=== PATIENT | female | born 2000 | race African-American/Black ===

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

== ENCOUNTER 2022-12-20 16:51 | Outpatient (CLI) | payer MEDICAID, OTHER ==
[~2022-12-20] VITALS: Ht 157.5 cm; Wt 59.5 kg
[2022-12-20 17:15] VITALS: BP 119/71
[2022-12-20 18:57] VITALS: BP 103/64
[2022-12-20] MEDS ORDERED: CALCIUM CARBONATE 500 MG CHEW U/D PO PRN (19:00)
[2022-12-20 19:54] VITALS: BP 128/77
== END 2022-12-20 19:30 | disposition home or self-care (01) ==
LOC: M LDO 16:51
PROVIDERS: ATTEND Advanced Practice Midwife
DX: O47.1 False labor at or after 37 completed weeks of gestation (principal); Z3A.38 38 weeks gestation of pregnancy
CPT/HCPCS: 59025; 76815; 76819; 76820; G0463

== ENCOUNTER → 2022-12-20 | Outpatient (REF) | payer MEDICAID, OTHER ==
[~2022-12-20] MED LIST changes: +LEVA750T7 PO; +QUET100T2 PO; -QUET1TAB8 PO; -TRAZ-163 PO; +TRAZ-257 PO
== END ==
LOC: M SFHCWAGY 16:49
PROVIDERS: ATTEND Obstetrics & Gynecology
DX: Z34.93 Encounter for supervision of normal pregnancy, unspecified, third trimester (principal)

== ENCOUNTER 2022-12-25 07:25 | Inpatient (IN) | payer OTHER, MEDICAID ==
[~2022-12-25] VITALS: Ht 157.5 cm; Wt 59.3 kg
[2022-12-25] VITALS (14 sets, daily range): BP systolic 114–144; BP diastolic 65–89
[2022-12-25] MEDS ORDERED: PANT20TA6 PO (07:50)
[2022-12-25] MEDS ORDERED: MULTTAB20 PO (07:50)
[2022-12-25] MEDS ORDERED: HOME MED LIST COMPLETE! XX SCH (07:55)
[2022-12-25 08:43] LABS: HEMATOCRIT 31.6 % (36.0-47.0); HEMOGLOBIN 10.4 g/dl (12.0-15.5); MEAN CORPUSCULAR HEMOGLOBIN 27.3 pg (27.0-33.0); MEAN CORPUSCULAR HGB CONC 32.9 g/dl (32.0-36.5); MEAN CORPUSCULAR VOLUME 82.9 fl (80.0-96.0); PLATELET COUNT, AUTOMATED 203 10^3/uL (150-450); RED BLOOD COUNT 3.81 10^6/uL (4.00-5.40); WHITE BLOOD COUNT 8.8 10^3/uL (4.0-10.0)
[2022-12-25] MEDS ORDERED: OXYTOCIN INJ 10UNITS/ML 1ML VIAL IM PRN (09:00)
[2022-12-25] MEDS ORDERED: LIDOCAINE 1% MDV 20ML VIAL INFIL PRN (09:00)
[2022-12-25] MEDS ORDERED: LACTATED RINGER'S 1000 ML IV STA (09:00)
[2022-12-25] MEDS ORDERED: METHYLERGONOVINE MALEATE 0.2MG/ML 1ML VIAL IM PRN (09:00)
[2022-12-25] MEDS ORDERED: OXYTOCIN DRIP 30 UNITS in IV 1 EA IV PRN (09:00)
[2022-12-25] MEDS ORDERED: TRANEXAMIC ACID INJection 1,000 MG in NS 100 ML IV PRN (09:00)
[2022-12-25] MEDS ORDERED: CARBOPROST TROMETHAMINE 250 MCG/ML AMP IM PRN (09:00)
[2022-12-25] MEDS ORDERED: LACTATED RINGER'S 1000 ML IV ONE (09:10)
[2022-12-25] MEDS ORDERED: miSOPROStol 50MCG 1/2 TABLET PO SCH (10:00)
[2022-12-25] MEDS: CALCIUM CARBONATE 500 MG CHEW U/D PO PRN ×3 (10:07→19:21)
[2022-12-25] MEDS: SERTRALINE HCL 50 MG TAB PO SCH (10:08)
[2022-12-25 12:09] LABS: HIV 1&2 SCREEN CENTAUR NEGATIVE (NEGATIVE)
[2022-12-25] MEDS ORDERED: OXYTOCIN DRIP 30 UNITS in IV 1 EA IV SCH (15:50)
[2022-12-25] MEDS: LR 1,000 ML IV SCH (16:00)
[2022-12-25] MEDS ORDERED: LR 500 ML IV PRN (17:35)
[2022-12-25] MEDS ORDERED: ONDANSETRON 4MG 2ML VIAL IV PRN (17:35)
[2022-12-25] MEDS ORDERED: diphenhydrAMINE 50MG/ML VIAL IV PRN (17:35)
[2022-12-25] MEDS ORDERED: ePHEDrine SULFATE 25 MG/5 ML(5MG/ML) SYRINGE IVP PRN (17:35)
[2022-12-25] MEDS ORDERED: NALOXONE INJ 0.4MG/1ML VIAL IV PRN (17:35)
[2022-12-25] MEDS ORDERED: EPIDURAL/PCA KEYS XX PRN (17:35)
[2022-12-25] MEDS: FENTANYL/ROPIVACAINE/NACL BAG 100 ML EPIDURAL SCH (17:48)
[2022-12-26] MEDS: FENTANYL/ROPIVACAINE/NACL BAG 100 ML EPIDURAL SCH (01:25)
[2022-12-26] MEDS: LR 1,000 ML IV SCH (04:45)
[2022-12-26 07:21] VITALS: BP 121/69
[2022-12-26 07:37] VITALS: BP 146/84
[2022-12-26 08:07] VITALS: BP 122/61
[2022-12-26] MEDS ORDERED: ACETAMINOPHEN 500 MG TAB PO PRN (08:10)
[2022-12-26] MEDS ORDERED: RHOGAM 300MCG (1500IU) INJ IM SCH (08:10)
[2022-12-26] MEDS ORDERED: DIBUCAINE 1% OINTMENT 30GM TOP PRN (08:10)
[2022-12-26] MEDS ORDERED: METHYLERGONOVINE MALEATE 0.2 MG TAB PO PRN (08:10)
[2022-12-26] MEDS ORDERED: DOCUSATE SODIUM 100MG CAPSULE PO PRN (08:10)
[2022-12-26] MEDS: PRENATAL VITAMINS CHEWABLE TABLET PO SCH (09:37)
[2022-12-26] MEDS: IBUPROFEN 600MG TAB PO PRN (09:38)
[2022-12-26] MEDS: SERTRALINE HCL 50 MG TAB PO SCH (09:38)
[2022-12-26 10:09] VITALS: BP 134/77
[2022-12-26] MEDS ORDERED: SERTRALINE HCL 50 MG TAB PO ONE (10:15)
[2022-12-26] MEDS ORDERED: SERT50TA29 PO (10:17)
[2022-12-26 18:00] VITALS: BP 129/77
[2022-12-27 06:00] VITALS: BP 119/78
[2022-12-27] MEDS: PRENATAL VITAMINS CHEWABLE TABLET PO SCH (08:32)
[2022-12-27] MEDS: SERTRALINE HCL 50 MG TAB PO SCH (08:32)
[2022-12-27 18:00] VITALS: BP 103/58
[2022-12-27] MEDS: IBUPROFEN 600MG TAB PO PRN (19:35)
[2022-12-28 02:30] VITALS: BP 134/64
[2022-12-28 06:21] VITALS: BP 121/73
[2022-12-28] MEDS: SERTRALINE HCL 50 MG TAB PO SCH (08:12)
[2022-12-28] MEDS: PRENATAL VITAMINS CHEWABLE TABLET PO SCH (08:12)
[2022-12-28] MEDS ORDERED: IBUP-1022 PO (08:22)
[2022-12-28] MEDS ORDERED: ACET-683 PO (08:22)
[2022-12-28] MEDS ORDERED: MEASLES,MUMPS,RUBELLA VACCINE INJ (MMR-II) SC.IMMUN ONE (09:00)
== END 2022-12-28 12:02 | disposition home or self-care (01) | DRG 560 ==
LOC: M LDI 07:25 → M OBS 12-26 10:25
PROVIDERS: ADMIT Specialist; ATTEND Advanced Practice Midwife
PROC: 3E0P7GC Introduction of Other Therapeutic Substance into Female Reproductive, Via Natural or Artificial Opening (ICD-10-PCS; 2022-12-25)
PROC: 10E0XZZ Delivery of Products of Conception, External Approach (ICD-10-PCS; principal; 2022-12-26)
PROC: 0KQM0ZZ Repair Perineum Muscle, Open Approach (ICD-10-PCS; 2022-12-26)
DX: O99.344 Other mental disorders complicating childbirth (principal); Z3A.39 39 weeks gestation of pregnancy; Z37.0 Single live birth; F41.9 Anxiety disorder, unspecified; F32.A Depression, unspecified; O70.1 Second degree perineal laceration during delivery

== ENCOUNTER 2023-04-23 18:06 | Emergency (ER) | payer OTHER, MEDICAID ==
[~2023-04-23] VITALS: Ht 157.5 cm; Wt 43.5 kg
[~2023-04-23 18:06] MED LIST changes: +ACET-683 PO; +IBUP-1022 PO; +MULTTAB20 PO; +PANT20TA6 PO; +SERT50TA29 PO
[2023-04-23 18:07] VITALS: BP 108/65; TEMP 99.4; O2SAT 100
== END 2023-04-23 19:58 | disposition left against medical advice (07) ==
LOC: M ED 18:06
DX: Z53.21 Procedure and treatment not carried out due to patient leaving prior to being seen by health care provider (principal)

== ENCOUNTER 2023-04-24 17:41 | Emergency (ER) | payer MEDICAID, OTHER ==
[~2023-04-24] VITALS: Ht 157.5 cm; Wt 53.4 kg
[2023-04-24 18:00] VITALS: BP 100/67; TEMP 101.2; O2SAT 99
[2023-04-24 18:59] LABS: BASO % 0.1 % (0.0-1.0); HEMATOCRIT 34.2 % (36.0-47.0); HEMOGLOBIN 11.2 g/dl (12.0-15.5); LYMPH # 1.1 10^3/uL (1.5-5.0); LYMPH % 10.3 % (24.0-44.0); MEAN CORPUSCULAR HEMOGLOBIN 27.3 pg (27.0-33.0); MEAN CORPUSCULAR HGB CONC 32.7 g/dl (32.0-36.5); MEAN CORPUSCULAR VOLUME 83.4 fl (80.0-96.0); MONO # 1.4 10^3/uL (0.0-0.8); MONO % 13.3 % (2.0-8.0); NEUTROPHILS # 8.1 10^3/uL (1.5-8.5); NEUTROPHILS % 75.7 % (36.0-66.0); PLATELET COUNT, AUTOMATED 184 10^3/uL (150-450); WHITE BLOOD COUNT 10.7 10^3/uL (4.0-10.0)
[2023-04-24 19:00] LABS: HCG, SERUM QUANTITATIVE < 2.6 MIU/ML (<4.2)
[2023-04-24 19:01] LABS: BLOOD UREA NITROGEN 17 MG/DL (9-23); CALCIUM LEVEL 8.4 MG/DL (8.5-10.1); CARBON DIOXIDE LEVEL 27 MMOL/L (20-31); CHLORIDE LEVEL 103 MMOL/L (98-107); CREATININE FOR GFR 0.81 MG/DL (0.55-1.30); GLOMERULAR FILTRATION RATE > 60.0 (>60); GLUCOSE, FASTING 98 MG/DL (60-100); POTASSIUM SERUM 3.6 MMOL/L (3.5-5.1); SODIUM LEVEL 137 MMOL/L (136-145)
[2023-04-24] MEDS ORDERED: ISOVUE-370 76% 100ML VIAL As Ordered ONE (19:05)
[2023-04-24] MEDS ORDERED: ONDANSETRON 4MG 2ML VIAL IV ONE (19:05)
[2023-04-24 19:19] LABS: LIPASE 30 U/L (12-53)
[2023-04-24 19:21] LABS: ALBUMIN 3.1 G/DL (3.2-5.2); ALKALINE PHOSPHATASE 83 U/L (46-116); ALT/SGPT 17 U/L (7.0-40); AST/SGOT 13 U/L (<34); BILIRUBIN,DIRECT < 0.1 MG/DL (<0.4); BILIRUBIN,TOTAL 0.3 MG/DL (0.3-1.2); TOTAL PROTEIN 6.3 G/DL (5.7-8.2)
== END 2023-04-24 20:25 | disposition left against medical advice (07) ==
LOC: M ED 17:41 → EDBD 17:41 → M ED 20:25
DX: M54.50 Low back pain, unspecified (principal); R68.83 Chills (without fever); R61 Generalized hyperhidrosis; Z53.9 Procedure and treatment not carried out, unspecified reason; K21.9 Gastro-esophageal reflux disease without esophagitis; N10 Acute pyelonephritis; Z79.899 Other long term (current) drug therapy
CPT/HCPCS: 74177; 80047; 80048; 80076; 81001; 83605; 83690; 84702; 85025; 86850; 86900; 86901; 87040; 87486; 87581; 87633; 87798; 99284; Q9967

== ENCOUNTER 2023-05-14 17:21 | Inpatient (IN) | payer MEDICAID, OTHER ==
[~2023-05-14] VITALS: Ht 157.5 cm; Wt 41.8 kg
[2023-05-14 18:14] LABS: HEMATOCRIT 38.2 % (36.0-47.0); HEMOGLOBIN 12.1 g/dl (12.0-15.5); MEAN CORPUSCULAR HEMOGLOBIN 27.3 pg (27.0-33.0); MEAN CORPUSCULAR HGB CONC 31.7 g/dl (32.0-36.5); MEAN CORPUSCULAR VOLUME 86.2 fl (80.0-96.0); PLATELET COUNT, AUTOMATED 293 10^3/uL (150-450); RED BLOOD COUNT 4.43 10^6/uL (4.00-5.40); WHITE BLOOD COUNT 5.8 10^3/uL (4.0-10.0)
[2023-05-14] MEDS ORDERED: NS 1,000 ML IV ONE (18:15)
[2023-05-14 18:16] LABS: ETHYL ALCOHOL (ETHANOL) < 0.003 % (0.000-0.010)
[2023-05-14 18:18] LABS: ACETAMINOPHEN LEVEL < 2.0 UG/ML (10.0-20.0); ALKALINE PHOSPHATASE 105 U/L (46-116); ALT/SGPT 15 U/L (7.0-40); AST/SGOT 12 U/L (<34); BILIRUBIN,DIRECT 0.1 MG/DL (<0.4); BILIRUBIN,TOTAL 0.5 MG/DL (0.3-1.2); BLOOD UREA NITROGEN 8 MG/DL (9-23); CALCIUM LEVEL 9.2 MG/DL (8.5-10.1); CARBON DIOXIDE LEVEL 24 MMOL/L (20-31); CHLORIDE LEVEL 106 MMOL/L (98-107); CREATININE FOR GFR 0.68 MG/DL (0.55-1.30); GLOMERULAR FILTRATION RATE > 60.0 (>60); GLUCOSE, FASTING 104 MG/DL (60-100); POTASSIUM SERUM 3.3 MMOL/L (3.5-5.1); SALICYLATE LEVEL < 3.0 MG/DL (<30); SODIUM LEVEL 144 MMOL/L (136-145); TOTAL PROTEIN 7.3 G/DL (5.7-8.2)
[2023-05-14] MEDS ORDERED: CHARCOAL ACTIVATED LIQUID 25GM/120ML BTL PO ONE (18:20)
[2023-05-14 18:21] LABS: THYROID STIMULATING HORMONE 2.094 uIU/ML (0.55-4.78)
[2023-05-14 18:27] LABS: AMPHETAMINES LEVEL URINE NEGATIVE (NEGATIVE); BARBITURATES URINE NEGATIVE (NEGATIVE); COCAINE METABOLITE URINE NEGATIVE (NEGATIVE); METHADONE URINE NEGATIVE (NEGATIVE)
[2023-05-14 18:28] LABS: BENZODIAZEPINES URINE NEGATIVE (NEGATIVE); CANNABINOIDS URINE NEGATIVE (NEGATIVE); OPIATES URINE NEGATIVE (NEGATIVE); PHENCYCLIDINE URINE NEGATIVE (NEGATIVE)
[2023-05-14 18:34] LABS: HCG, SERUM QUALITATIVE NEGATIVE (NEGATIVE)
[2023-05-14] MEDS ORDERED: POTASSIUM CHLORIDE 10MEQ SR TABLET PO ONE (18:35)
[2023-05-14 19:35] LABS: VENOUS BASE EXCESS -3.1 (-2.0-2.0); VENOUS HCO3 22.8 MMOL/L (23.0-27.0); VENOUS O2 SATURATION 96.6 % (60.0-80.0); VENOUS PARTIAL PRESSURE CO2 44.1 mmHg (38.0-50.0); VENOUS PARTIAL PRESSURE O2 96.2 mmHg (30.0-50.0); VENOUS PH 7.332 UNITS (7.330-7.430); VENOUS STANDARD HCO3 21.9 MMOL/L; VENOUS TOTAL CO2 24.2 MMOL/L (24.0-28.0)
[2023-05-14] MEDS ORDERED: MED REC IN PROGRESS XX SCH (19:40)
[2023-05-14] MEDS ORDERED: HOME MED LIST COMPLETE! XX SCH (19:45)
[2023-05-15] MEDS ORDERED: diphenhydrAMINE 25MG CAP PO PRN (12:35)
[2023-05-15] MEDS ORDERED: MOM 30ML SUSPENSION UDC PO PRN (12:35)
[2023-05-15] MEDS ORDERED: MAALOX 30 ML SUSP *UDC PO PRN (12:35)
[2023-05-15 15:02] VITALS: BP 124/87; TEMP 97; O2SAT 100
[2023-05-15] MEDS: NICOTINE 21MG/24HR 1 EA TRANSDERMAL TD PRN (17:37)
[2023-05-16 06:53] VITALS: BP 124/63; TEMP 98.2; O2SAT 98
[2023-05-16] MEDS: SERTRALINE HCL 25 MG TABLET PO SCH (11:36)
[2023-05-16] MEDS: LIDOCAINE 5% (LIDODERM) PATCH TD SCH (12:08)
[2023-05-16] MEDS: IBUPROFEN 600MG TAB PO PRN ×2 (15:28→21:35)
[2023-05-16 15:30] VITALS: BP 124/82; TEMP 97.5; O2SAT 100
[2023-05-16] MEDS: ACETAMINOPHEN TAB 650MG DOSE (2X325MG) PO PRN ×2 (16:17→22:22)
[2023-05-16 17:58] LABS: HEMATOCRIT 35.7 % (36.0-47.0); HEMOGLOBIN 11.7 g/dl (12.0-15.5); MEAN CORPUSCULAR HGB CONC 32.8 g/dl (32.0-36.5); MEAN CORPUSCULAR VOLUME 85.4 fl (80.0-96.0); PLATELET COUNT, AUTOMATED 257 10^3/uL (150-450); RED BLOOD COUNT 4.18 10^6/uL (4.00-5.40); WHITE BLOOD COUNT 6.9 10^3/uL (4.0-10.0)
[2023-05-16 18:05] LABS: ALKALINE PHOSPHATASE 103 U/L (46-116); ALT/SGPT 14 U/L (7.0-40); AST/SGOT 8 U/L (<34); BILIRUBIN,DIRECT 0.2 MG/DL (<0.4); BILIRUBIN,TOTAL 0.5 MG/DL (0.3-1.2); BLOOD UREA NITROGEN 10 MG/DL (9-23); CALCIUM LEVEL 9.3 MG/DL (8.5-10.1); CARBON DIOXIDE LEVEL 24 MMOL/L (20-31); CHLORIDE LEVEL 107 MMOL/L (98-107); CREATININE FOR GFR 0.78 MG/DL (0.55-1.30); GLOMERULAR FILTRATION RATE > 60.0 (>60); GLUCOSE, FASTING 92 MG/DL (60-100); POTASSIUM SERUM 3.6 MMOL/L (3.5-5.1); SODIUM LEVEL 141 MMOL/L (136-145); TOTAL PROTEIN 6.9 G/DL (5.7-8.2)
[2023-05-16] MEDS: NICOTINE 21MG/24HR 1 EA TRANSDERMAL TD PRN (19:57)
[2023-05-16] MEDS: traZODone 50 MG TAB PO PRN (22:23)
[2023-05-17 06:17] VITALS: BP 128/72; TEMP 98.2; O2SAT 100
[2023-05-17] MEDS: LIDOCAINE 5% (LIDODERM) PATCH TD SCH (09:00)
[2023-05-17] MEDS: SERTRALINE HCL 25 MG TABLET PO SCH (09:51)
[2023-05-17 17:32] VITALS: BP 118/63; TEMP 99.8
[2023-05-17] MEDS: traZODone 50 MG TAB PO PRN (20:55)
[2023-05-18 06:22] VITALS: BP 99/59; TEMP 98.2; O2SAT 98
[2023-05-18] MEDS: SERTRALINE HCL 25 MG TABLET PO SCH (09:50)
[2023-05-18] MEDS: LIDOCAINE 5% (LIDODERM) PATCH TD SCH (09:50)
[2023-05-18] MEDS: LevoFLOXacin 750 MG TABLET PO SCH (10:21)
[2023-05-18] MEDS: IBUPROFEN 600MG TAB PO PRN (16:34)
[2023-05-18 16:35] VITALS: BP 108/60; TEMP 98.9; O2SAT 96
[2023-05-18] MEDS ORDERED: PHENAZOPYRIDINE 100 MG TAB PO SCH (18:00)
[2023-05-18] MEDS: ARIPiprazole 10 MG TAB PO SCH (21:05)
[2023-05-18] MEDS: PHENAZOPYRIDINE 100 MG TAB PO SCH (21:06)
[2023-05-19] MEDS: PHENAZOPYRIDINE 100 MG TAB PO SCH ×3 (06:04→21:04)
[2023-05-19 06:44] VITALS: BP 114/65; TEMP 98.9; O2SAT 98
[2023-05-19] MEDS: LIDOCAINE 5% (LIDODERM) PATCH TD SCH (10:18)
[2023-05-19] MEDS: LevoFLOXacin 750 MG TABLET PO SCH (10:18)
[2023-05-19] MEDS: SERTRALINE HCL 25 MG TABLET PO SCH (10:18)
[2023-05-19 16:15] VITALS: BP 110/64; TEMP 97.1; O2SAT 100
[2023-05-19] MEDS: ARIPiprazole 10 MG TAB PO SCH (21:04)
[2023-05-19] MEDS: IBUPROFEN 600MG TAB PO PRN (21:04)
[2023-05-20] MEDS: PHENAZOPYRIDINE 100 MG TAB PO SCH ×2 (06:17→14:42)
[2023-05-20 06:40] VITALS: BP 117/78; TEMP 96.9; O2SAT 98
[2023-05-20] MEDS: SERTRALINE HCL 50 MG TAB PO SCH (09:30)
[2023-05-20] MEDS: LevoFLOXacin 750 MG TABLET PO SCH (09:31)
[2023-05-20] MEDS: LIDOCAINE 5% (LIDODERM) PATCH TD SCH (09:32)
[2023-05-20 16:16] VITALS: BP 116/67; TEMP 98.1; O2SAT 97
[2023-05-20] MEDS: traZODone 50 MG TAB PO PRN (20:25)
[2023-05-20] MEDS: ARIPiprazole 10 MG TAB PO SCH (20:25)
[2023-05-21 06:26] VITALS: BP 121/73; TEMP 98.6; O2SAT 95
[2023-05-21] MEDS: LIDOCAINE 5% (LIDODERM) PATCH TD SCH (09:10)
[2023-05-21] MEDS: SERTRALINE HCL 50 MG TAB PO SCH (09:10)
[2023-05-21] MEDS: NICOTINE 21MG/24HR 1 EA TRANSDERMAL TD PRN (09:14)
[2023-05-21] MEDS: LevoFLOXacin 750 MG TABLET PO SCH (11:43)
[2023-05-21 18:00] VITALS: BP 123/75; TEMP 97.2; O2SAT 100
[2023-05-21] MEDS: traZODone 50 MG TAB PO PRN (20:37)
[2023-05-21] MEDS: ARIPiprazole 10 MG TAB PO SCH (20:37)
[2023-05-22 06:22] VITALS: BP 118/65; TEMP 97.2; O2SAT 96
[2023-05-22] MEDS: SERTRALINE 100 MG TAB PO SCH (08:44)
[2023-05-22] MEDS: NICOTINE 21MG/24HR 1 EA TRANSDERMAL TD PRN (08:45)
[2023-05-22] MEDS: LIDOCAINE 5% (LIDODERM) PATCH TD SCH (08:46)
[2023-05-22] MEDS: LevoFLOXacin 750 MG TABLET PO SCH (11:39)
[2023-05-22 15:31] VITALS: BP 123/71; TEMP 98.8; O2SAT 100
[2023-05-22 17:53] VITALS: BP 101/62; TEMP 96.9; O2SAT 98
[2023-05-22] MEDS: traZODone 50 MG TAB PO PRN (21:13)
[2023-05-22] MEDS: ARIPiprazole 10 MG TAB PO SCH (21:13)
[2023-05-23 06:11] VITALS: BP 114/72; TEMP 97.4; O2SAT 98
[2023-05-23] MEDS: SERTRALINE 100 MG TAB PO SCH (09:44)
[2023-05-23] MEDS: NICOTINE 21MG/24HR 1 EA TRANSDERMAL TD PRN (09:44)
[2023-05-23] MEDS: LIDOCAINE 5% (LIDODERM) PATCH TD SCH (09:44)
[2023-05-23] MEDS ORDERED: ZOLO100T PO (10:30)
[2023-05-23] MEDS ORDERED: LIDO5TD TD (10:30)
[2023-05-23] MEDS ORDERED: NICO21PAT TD (10:30)
[2023-05-23] MEDS ORDERED: ABIL10TA9 PO (10:30)
[2023-05-23] MEDS ORDERED: TRAZ-252 PO (10:30)
== END 2023-05-23 12:46 | disposition home or self-care (01) | DRG 753 ==
LOC: M ED 17:21 → EDBD 17:21 → M ED INP 05-15 12:34 → M PSY 05-15 14:59
PROVIDERS: ADMIT Student in an Organized Health Care Education/Training Program; ATTEND Student in an Organized Health Care Education/Training Program
DX: F31.60 Bipolar disorder, current episode mixed, unspecified (principal); R45.850 Homicidal ideations; R45.851 Suicidal ideations; F60.3 Borderline personality disorder; Z62.810 Personal history of physical and sexual abuse in childhood; Z79.899 Other long term (current) drug therapy; F17.290 Nicotine dependence, other tobacco product, uncomplicated; M54.59 Other low back pain; F41.9 Anxiety disorder, unspecified; N39.0 Urinary tract infection, site not specified; F53.0 Postpartum depression

== ENCOUNTER 2023-10-04 15:56 | Inpatient (IN) | payer MEDICAID ==
[~2023-10-04] VITALS: Ht 157.5 cm; Wt 45.1 kg
[~2023-10-04 15:56] MED LIST changes: +ABIL10TA9 PO; +LIDO5TD TD; +NICO21PAT TD; +TRAZ-252 PO; +ZOLO100T PO
[2023-10-04] MEDS ORDERED: ZOLO100T PO (16:22)
[2023-10-04] MEDS ORDERED: TRAZ-252 PO (16:22)
[2023-10-04 16:57] LABS: HEMATOCRIT 40.7 % (36.0-47.0); HEMOGLOBIN 13.3 g/dl (12.0-15.5); MEAN CORPUSCULAR HEMOGLOBIN 28.2 pg (27.0-33.0); MEAN CORPUSCULAR HGB CONC 32.7 g/dl (32.0-36.5); MEAN CORPUSCULAR VOLUME 86.4 fl (80.0-96.0); PLATELET COUNT, AUTOMATED 221 10^3/uL (150-450); RED BLOOD COUNT 4.71 10^6/uL (4.00-5.40); WHITE BLOOD COUNT 6.5 10^3/uL (4.0-10.0)
[2023-10-04 17:24] LABS: ETHYL ALCOHOL (ETHANOL) < 0.003 % (0.000-0.010)
[2023-10-04 17:26] LABS: ALKALINE PHOSPHATASE 78 U/L (46-116); ALT/SGPT < 9 U/L (7.0-40); AST/SGOT 12 U/L (<34); BILIRUBIN,DIRECT < 0.1 MG/DL (<0.4); BILIRUBIN,TOTAL 0.3 MG/DL (0.3-1.2); BLOOD UREA NITROGEN 11 MG/DL (9-23); CALCIUM LEVEL 9.7 MG/DL (8.5-10.1); CARBON DIOXIDE LEVEL 24 MMOL/L (20-31); CHLORIDE LEVEL 108 MMOL/L (98-107); CREATININE FOR GFR 0.78 MG/DL (0.55-1.30); GLOMERULAR FILTRATION RATE > 60.0 (>60); GLUCOSE, FASTING 87 MG/DL (60-100); POTASSIUM SERUM 4.1 MMOL/L (3.5-5.1); SALICYLATE LEVEL < 3.0 MG/DL (<30); SODIUM LEVEL 138 MMOL/L (136-145); TOTAL PROTEIN 7.3 G/DL (5.7-8.2)
[2023-10-04 17:31] LABS: THYROID STIMULATING HORMONE 0.633 uIU/ML (0.55-4.78)
[2023-10-04 17:32] LABS: HCG, SERUM QUALITATIVE NEGATIVE (NEGATIVE)
[2023-10-04 18:52] LABS: AMPHETAMINES LEVEL URINE NEGATIVE (NEGATIVE); BARBITURATES URINE NEGATIVE (NEGATIVE); BENZODIAZEPINES URINE NEGATIVE (NEGATIVE); COCAINE METABOLITE URINE NEGATIVE (NEGATIVE); METHADONE URINE NEGATIVE (NEGATIVE); OPIATES URINE NEGATIVE (NEGATIVE)
[2023-10-04 18:53] LABS: PHENCYCLIDINE URINE NEGATIVE (NEGATIVE)
[2023-10-04 18:55] LABS: CANNABINOIDS URINE POSITIVE (NEGATIVE)
[2023-10-04] MEDS ORDERED: IBUPROFEN 400MG TAB PO PRN (19:10)
[2023-10-04] MEDS ORDERED: ACETAMINOPHEN TAB 650MG DOSE (2X325MG) PO PRN (19:10)
[2023-10-04] MEDS ORDERED: MOM 30ML SUSPENSION UDC PO PRN (19:10)
[2023-10-04] MEDS ORDERED: NICOTINE 21MG/24HR 1 EA TRANSDERMAL TD PRN (19:10)
[2023-10-04] MEDS ORDERED: MAALOX 30 ML SUSP *UDC PO PRN (19:10)
[2023-10-04] MEDS: OLANZapine ORAL DISINTEGRATING TAB 5MG PO PRN (21:41)
[2023-10-04] MEDS: traZODone 50 MG TAB PO PRN (21:41)
[2023-10-04 21:49] VITALS: BP 128/70; TEMP 98.2; O2SAT 98
[2023-10-05 06:35] VITALS: BP 109/67; TEMP 97.8; O2SAT 100
[2023-10-05] MEDS ORDERED: ARIP10TA32 PO (09:39)
[2023-10-05] MEDS ORDERED: HOME MED LIST COMPLETE! XX SCH (09:40)
[2023-10-05] MEDS: SERTRALINE HCL 50 MG TAB PO SCH (12:56)
[2023-10-05 16:15] VITALS: BP 124/77; TEMP 97.7; O2SAT 100
[2023-10-05] MEDS: diphenhydrAMINE 25MG CAP PO PRN (21:13)
[2023-10-05] MEDS: ARIPiprazole 10 MG TAB PO SCH (21:13)
[2023-10-05] MEDS: traZODone 50 MG TAB PO PRN (21:13)
[2023-10-05] MEDS: OLANZapine ORAL DISINTEGRATING TAB 5MG PO PRN (22:37)
[2023-10-06 06:12] VITALS: BP 114/60; TEMP 98.4; O2SAT 100
[2023-10-06] MEDS: SERTRALINE HCL 50 MG TAB PO SCH (08:36)
[2023-10-06] MEDS ORDERED: CEPACOL LOZENGE PO PRN (14:45)
[2023-10-06] MEDS: OLANZapine ORAL DISINTEGRATING TAB 5MG PO PRN (17:55)
[2023-10-06] MEDS: ARIPiprazole 10 MG TAB PO SCH (20:29)
[2023-10-06] MEDS: diphenhydrAMINE 25MG CAP PO PRN (21:31)
[2023-10-06] MEDS: traZODone 50 MG TAB PO PRN (21:31)
[2023-10-06] MEDS: SODIUM CHLORIDE NASAL 0.65% SPRAY BTL (OCEAN) PRN (21:49)
[2023-10-07 06:53] VITALS: BP 113/62; TEMP 98.3; O2SAT 97
[2023-10-07 07:25] LABS: CHOLESTEROL RISK RATIO 4.01 (<5); HDL CHOLESTEROL 41.3 MG/DL (>40); LDL CHOLESTEROL 109.1 MG/DL (<100); NON-HDL-C 124.7 MG/DL
[2023-10-07] MEDS: SERTRALINE HCL 50 MG TAB PO SCH (08:43)
[2023-10-07] MEDS: SODIUM CHLORIDE NASAL 0.65% SPRAY BTL (OCEAN) PRN ×2 (12:44→13:45)
[2023-10-07] MEDS: OLANZapine ORAL DISINTEGRATING TAB 5MG PO PRN (14:23)
[2023-10-07 15:23] VITALS: BP 128/70; TEMP 97.7; O2SAT 100
[2023-10-07] MEDS: diphenhydrAMINE 25MG CAP PO PRN (20:42)
[2023-10-07] MEDS: ARIPiprazole 10 MG TAB PO SCH (20:42)
[2023-10-07] MEDS: traZODone 50 MG TAB PO PRN (20:43)
[2023-10-08 06:31] VITALS: BP 128/68; TEMP 98.2; O2SAT 100
[2023-10-08] MEDS: SERTRALINE HCL 50 MG TAB PO SCH (09:56)
[2023-10-08] MEDS: OLANZapine ORAL DISINTEGRATING TAB 5MG PO PRN ×2 (13:01→19:39)
[2023-10-08 18:24] VITALS: BP 117/59; TEMP 98.7; O2SAT 99
[2023-10-08] MEDS: traZODone 50 MG TAB PO PRN (20:55)
[2023-10-08] MEDS: ARIPiprazole 10 MG TAB PO SCH (20:55)
[2023-10-08] MEDS: diphenhydrAMINE 25MG CAP PO PRN (20:55)
[2023-10-09 06:04] VITALS: BP 112/69; TEMP 98.9; O2SAT 96
[2023-10-09] MEDS: SERTRALINE HCL 50 MG TAB PO SCH (08:28)
[2023-10-09] MEDS: OLANZapine ORAL DISINTEGRATING TAB 5MG PO PRN (08:29)
[2023-10-09] MEDS ORDERED: ARIP10TA32 PO (10:36)
[2023-10-09] MEDS ORDERED: TRAZ-252 PO (10:36)
[2023-10-09] MEDS ORDERED: OLAN1TAB16 PO (10:36)
[2023-10-09] MEDS ORDERED: OLAN5ZYD PO (10:36)
[2023-10-09] MEDS ORDERED: NICO21PAT TD (10:36)
[2023-10-09] MEDS ORDERED: SERT50TA29 PO (10:36)
[2023-10-09] MEDS ORDERED: ABIL1INJ2 IM (10:39)
[2023-10-09] MEDS ORDERED: ARIPiprazole MONOHYDRATE 400 MG INJ (ABILIFY)(FREE PSY INPT ONLY) IM ONE (12:00)
== END 2023-10-09 12:59 | disposition home or self-care (01) | DRG 753 ==
LOC: M ED 15:56 → M ED INP 19:10 → M PSY 21:15
PROVIDERS: ADMIT Student in an Organized Health Care Education/Training Program; ATTEND Student in an Organized Health Care Education/Training Program
DX: F31.30 Bipolar disorder, current episode depressed, mild or moderate severity, unspecified (principal); Z91.148 Patient's other noncompliance with medication regimen for other reason; R45.851 Suicidal ideations; F12.90 Cannabis use, unspecified, uncomplicated; F60.3 Borderline personality disorder; E73.9 Lactose intolerance, unspecified; Z79.899 Other long term (current) drug therapy; G47.00 Insomnia, unspecified; F41.9 Anxiety disorder, unspecified; J10.89 Influenza due to other identified influenza virus with other manifestations; R51.9 Headache, unspecified; J02.9 Acute pharyngitis, unspecified

== ENCOUNTER → 2023-11-29 | Outpatient (REF) | payer OTHER ==
[~2023-11-29] MED LIST changes: +ABIL1INJ2 IM; +ARIP10TA32 PO; +OLAN1TAB16 PO; +OLAN5ZYD PO
== END ==
LOC: M PLALAB 15:16
PROVIDERS: ATTEND Advanced Practice Midwife
DX: Z53.9 Procedure and treatment not carried out, unspecified reason (principal)

== ENCOUNTER → 2023-12-28 | Outpatient (CLI) | payer OTHER | LOC: M WHC 11:38 | PROVIDERS: ATTEND Advanced Practice Midwife | DX: Z53.9 Procedure and treatment not carried out, unspecified reason (principal) ==

== ENCOUNTER → 2024-01-08 | Outpatient (CLI) | payer MEDICAID, OTHER ==
[2024-01-08 14:20] LABS: HEMOGLOBIN 10.6 g/dl (12.0-15.5); MEAN CORPUSCULAR HEMOGLOBIN 29.4 pg (27.0-33.0); MEAN CORPUSCULAR HGB CONC 33.1 g/dl (32.0-36.5); MEAN CORPUSCULAR VOLUME 88.9 fl (80.0-96.0); PLATELET COUNT, AUTOMATED 206 10^3/uL (150-450); WHITE BLOOD COUNT 10.2 10^3/uL (4.0-10.0)
[2024-01-08 15:27] LABS: HIV 1&2 SCREEN NEGATIVE (NEGATIVE)
[2024-01-08 15:35] LABS: HEPATITIS C VIRUS ABY INDEX < 0.02 INDEX (<0.8)
[2024-01-08 15:46] LABS: GC DNA AMPLIFICATION NEGATIVE (NEGATIVE)
== END ==
LOC: M PLALAB 10:48
PROVIDERS: ATTEND Advanced Practice Midwife
DX: O99.341 Other mental disorders complicating pregnancy, first trimester (principal); Z3A.00 Weeks of gestation of pregnancy not specified

== ENCOUNTER → 2024-05-20 | Outpatient (REF) | payer BC, OTHER ==
[2024-05-20 19:27] LABS: GC DNA AMPLIFICATION NEGATIVE (NEGATIVE)
== END ==
LOC: M SFHCWAGY 16:57
PROVIDERS: ATTEND Nurse Practitioner Women's Health
DX: Z34.80 Encounter for supervision of other normal pregnancy, unspecified trimester (principal)

== ENCOUNTER 2024-06-07 09:52 | Inpatient (IN) | payer OTHER, BC, MEDICAID ==
[~2024-06-07] VITALS: Ht 152.4 cm; Wt 54.0 kg
[2024-06-07] VITALS (11 sets, daily range): BP systolic 107–149; BP diastolic 73–92; O2SAT 99
[2024-06-07] MEDS ORDERED: LR 1,000 ML IV SCH ×2 (10:00→11:40)
[2024-06-07] MEDS ORDERED: CARBOPROST TROMETHAMINE 250 MCG/ML AMP IM PRN (10:00)
[2024-06-07] MEDS ORDERED: LIDOCAINE 1% MDV 20ML VIAL INFIL PRN (10:00)
[2024-06-07] MEDS ORDERED: METHYLERGONOVINE MALEATE 0.2MG/ML 1ML VIAL IM PRN (10:00)
[2024-06-07] MEDS ORDERED: TRANEXAMIC ACID INJection 1,000 MG in NS 100 ML IV PRN (10:00)
[2024-06-07 10:27] LABS: HEMATOCRIT 33.6 % (36.0-47.0); HEMOGLOBIN 11.5 g/dl (12.0-15.5); MEAN CORPUSCULAR HEMOGLOBIN 29.5 pg (27.0-33.0); MEAN CORPUSCULAR HGB CONC 34.2 g/dl (32.0-36.5); MEAN CORPUSCULAR VOLUME 86.2 fl (80.0-96.0); PLATELET COUNT, AUTOMATED 155 10^3/uL (150-450)
[2024-06-07] MEDS ORDERED: ePHEDrine SULFATE 25 MG/5 ML(5MG/ML) SYRINGE IVP PRN (10:55)
[2024-06-07] MEDS ORDERED: EPIDURAL/PCA KEYS XX PRN (10:55)
[2024-06-07] MEDS ORDERED: NALOXONE INJ 0.4MG/1ML VIAL IV PRN (10:55)
[2024-06-07] MEDS ORDERED: ONDANSETRON 4MG 2ML VIAL IV PRN (10:55)
[2024-06-07] MEDS ORDERED: diphenhydrAMINE 50MG/ML VIAL IV PRN (10:55)
[2024-06-07] MEDS ORDERED: LR 500 ML IV PRN (10:55)
[2024-06-07 11:27] LABS: HEPATITIS C VIRUS ABY INDEX 0.04 INDEX (<0.8)
[2024-06-07] MEDS: FENTANYL/ROPIVACAINE/NACL BAG 100 ML EPIDURAL SCH (11:28)
[2024-06-07] MEDS: OXYTOCIN DRIP 30 UNITS in IV 1 EA IV PRN (11:28)
[2024-06-07] MEDS: LACTATED RINGER'S 1000 ML IV STA (11:28)
[2024-06-07] MEDS ORDERED: IBUPROFEN 800 MG TAB PO PRN (11:40)
[2024-06-07] MEDS ORDERED: ANUSOL HC CREAM 30GM TOP PRN (11:40)
[2024-06-07] MEDS ORDERED: IBUPROFEN 600MG TAB PO PRN (11:40)
[2024-06-07] MEDS ORDERED: METHYLERGONOVINE MALEATE 0.2 MG TAB PO PRN (11:40)
[2024-06-07] MEDS ORDERED: CALCIUM CARBONATE 500 MG CHEW U/D PO PRN (11:40)
[2024-06-07] MEDS: OXYTOCIN DRIP 30 UNITS in IV 1 EA IV SCH (11:40)
[2024-06-07] MEDS ORDERED: DIBUCAINE 1% OINTMENT 30GM TOP PRN (11:40)
[2024-06-07] MEDS ORDERED: ACETAMINOPHEN TAB 650MG DOSE (2X325MG) PO PRN (11:40)
[2024-06-07] MEDS: ACETAMINOPHEN 500 MG TAB PO PRN (14:58)
[2024-06-07 15:30] LABS: AMPHETAMINES URINE REFLEX NEGATIVE (NEGATIVE); BARBITURATES URINE REFLEX NEGATIVE (NEGATIVE); BENZODIAZEPINES URINE REFLEX NEGATIVE (NEGATIVE); COCAINE METABOLITE URINE REFLE NEGATIVE (NEGATIVE); METHADONE URINE REFLEX NEGATIVE (NEGATIVE); OPIATES URINE REFLEX NEGATIVE (NEGATIVE); PHENCYCLIDINE URINE REFLEX NEGATIVE (NEGATIVE)
[2024-06-07 15:40] LABS: CANNABINOIDS URINE REFLEX PENDING CONFIRMATION (NEGATIVE)
[2024-06-08 05:24] VITALS: BP 133/82; O2SAT 100
[2024-06-08] MEDS: RHO(D) IMMUNE GLOBULIN/MALTOSE 500MCG(2500IU)/2.2ML VIAL (WINRHO) IM SCH (07:45)
[2024-06-08] MEDS: PRENATAL VITAMINS CHEWABLE TABLET PO SCH (08:22)
[2024-06-08 18:00] VITALS: BP 106/66; O2SAT 99
[2024-06-09 05:38] VITALS: BP 124/58; O2SAT 100
[2024-06-09] MEDS: DOCUSATE SODIUM 100MG CAPSULE PO PRN (11:18)
[2024-06-09] MEDS ORDERED: IBUP80TA PO (11:57)
[2024-06-09] MEDS ORDERED: ACET-683 PO (11:57)
[2024-06-09] MEDS: MEASLES,MUMPS,RUBELLA VACCINE INJ (MMR-II) SC.IMMUN ONE (17:57)
[2024-06-12 03:07] LABS: Cannabinoid Positive (.); Carboxy THC Conf, MS, UR 42 ng/mL (Cutoff=10)
== END 2024-06-09 18:00 | disposition home or self-care (01) | DRG 560 ==
LOC: M LDO 09:52 → M LDI 10:00 → M OBS 17:15
PROVIDERS: ADMIT Obstetrics & Gynecology; ATTEND Obstetrics & Gynecology
PROC: 10E0XZZ Delivery of Products of Conception, External Approach (ICD-10-PCS; principal; 2024-06-07)
PROC: 10907ZC Drainage of Amniotic Fluid, Therapeutic from Products of Conception, Via Natural or Artificial Opening (ICD-10-PCS; 2024-06-07)
DX: O99.324 Drug use complicating childbirth (principal); F17.200 Nicotine dependence, unspecified, uncomplicated; Z37.0 Single live birth; Z3A.38 38 weeks gestation of pregnancy; O99.334 Smoking (tobacco) complicating childbirth; F12.90 Cannabis use, unspecified, uncomplicated

== ENCOUNTER 2024-06-10 16:56 | Emergency (ER) | payer BC, MEDICAID, OTHER ==
[~2024-06-10 16:56] MED LIST changes: +IBUP80TA PO
[2024-06-10 17:59] LABS: HEMATOCRIT 40.4 % (36.0-47.0); HEMOGLOBIN 13.3 g/dl (12.0-15.5); MEAN CORPUSCULAR HEMOGLOBIN 28.6 pg (27.0-33.0); MEAN CORPUSCULAR HGB CONC 32.9 g/dl (32.0-36.5); MEAN CORPUSCULAR VOLUME 86.9 fl (80.0-96.0); PLATELET COUNT, AUTOMATED 286 10^3/uL (150-450); RED BLOOD COUNT 4.65 10^6/uL (4.00-5.40); WHITE BLOOD COUNT 16.1 10^3/uL (4.0-10.0)
[2024-06-10 18:09] LABS: ETHYL ALCOHOL (ETHANOL) < 0.003 % (0.000-0.010)
[2024-06-10 18:11] LABS: ALBUMIN 3.2 G/DL (3.2-5.2); ALKALINE PHOSPHATASE 138 U/L (46-116); ALT/SGPT 29 U/L (7.0-40); AST/SGOT 36 U/L (<34); BILIRUBIN,DIRECT < 0.1 MG/DL (<0.4); BILIRUBIN,TOTAL 0.3 MG/DL (0.3-1.2); BLOOD UREA NITROGEN 12 MG/DL (9-23); CALCIUM LEVEL 9.8 MG/DL (8.5-10.1); CARBON DIOXIDE LEVEL 24 MMOL/L (20-31); CHLORIDE LEVEL 106 MMOL/L (98-107); CREATININE FOR GFR 0.84 MG/DL (0.55-1.30); GLOMERULAR FILTRATION RATE > 60.0 (>60); GLUCOSE, FASTING 68 MG/DL (60-100); POTASSIUM SERUM 4.1 MMOL/L (3.5-5.1); SALICYLATE LEVEL < 3.0 MG/DL (<30); SODIUM LEVEL 140 MMOL/L (136-145); TOTAL PROTEIN 7.7 G/DL (5.7-8.2)
[2024-06-10 19:49] LABS: AMPHETAMINES LEVEL URINE NEGATIVE (NEGATIVE); BARBITURATES URINE NEGATIVE (NEGATIVE); BENZODIAZEPINES URINE NEGATIVE (NEGATIVE); COCAINE METABOLITE URINE NEGATIVE (NEGATIVE); METHADONE URINE NEGATIVE (NEGATIVE); OPIATES URINE NEGATIVE (NEGATIVE); PHENCYCLIDINE URINE NEGATIVE (NEGATIVE)
[2024-06-10 19:52] LABS: CANNABINOIDS URINE POSITIVE (NEGATIVE)
[2024-06-10] MEDS ORDERED: HOME MED LIST COMPLETE! XX SCH (20:05)
[2024-06-10 21:20] VITALS: BP 124/88; TEMP 97.9; O2SAT 99
== END 2024-06-10 21:32 | disposition home or self-care (01) ==
LOC: M ED 16:56
DX: F31.9 Bipolar disorder, unspecified (principal); F43.0 Acute stress reaction; R45.851 Suicidal ideations; E73.9 Lactose intolerance, unspecified

== ENCOUNTER 2024-07-18 15:02 | Emergency (ER) | payer OTHER ==
[~2024-07-18] VITALS: Ht 157.5 cm; Wt 42.9 kg
[~2024-07-18 15:02] MED LIST changes: -ARIP10TA32 PO; +ARIP10TA63 PO
[2024-07-18] MEDS: LORazepam 2 MG/ML 1ML VIAL IM ONE ×2 (16:00→22:56)
[2024-07-18] MEDS: HALOPERIDOL LACTATE 5MG/ML VIAL IM ONE ×2 (16:00→22:56)
[2024-07-18 16:55] LABS: HEMATOCRIT 38.7 % (36.0-47.0); HEMOGLOBIN 12.7 g/dl (12.0-15.5); MEAN CORPUSCULAR HEMOGLOBIN 29.1 pg (27.0-33.0); MEAN CORPUSCULAR HGB CONC 32.8 g/dl (32.0-36.5); MEAN CORPUSCULAR VOLUME 88.6 fl (80.0-96.0); PLATELET COUNT, AUTOMATED 276 10^3/uL (150-450); RED BLOOD COUNT 4.37 10^6/uL (4.00-5.40); WHITE BLOOD COUNT 9.5 10^3/uL (4.0-10.0)
[2024-07-18 17:07] LABS: ETHYL ALCOHOL (ETHANOL) < 0.003 % (0.000-0.010)
[2024-07-18 17:09] LABS: ALBUMIN 3.7 G/DL (3.2-5.2); ALKALINE PHOSPHATASE 86 U/L (46-116); ALT/SGPT 18 U/L (7.0-40); AST/SGOT 17 U/L (<34); BILIRUBIN,DIRECT < 0.1 MG/DL (<0.4); BILIRUBIN,TOTAL 0.3 MG/DL (0.3-1.2); BLOOD UREA NITROGEN 9 MG/DL (9-23); CALCIUM LEVEL 10.2 MG/DL (8.5-10.1); CARBON DIOXIDE LEVEL 24 MMOL/L (20-31); CHLORIDE LEVEL 107 MMOL/L (98-107); CREATININE FOR GFR 0.79 MG/DL (0.55-1.30); GLOMERULAR FILTRATION RATE > 60.0 (>60); GLUCOSE, FASTING 108 MG/DL (60-100); POTASSIUM SERUM 4.1 MMOL/L (3.5-5.1); SALICYLATE LEVEL < 3.0 MG/DL (<30); SODIUM LEVEL 140 MMOL/L (136-145); TOTAL PROTEIN 7.4 G/DL (5.7-8.2)
[2024-07-18 17:10] LABS: HCG, SERUM QUALITATIVE NEGATIVE (NEGATIVE)
[2024-07-18 17:11] LABS: THYROID STIMULATING HORMONE 0.539 uIU/ML (0.55-4.78)
[2024-07-18 18:34] LABS: AMPHETAMINES LEVEL URINE NEGATIVE (NEGATIVE); BARBITURATES URINE NEGATIVE (NEGATIVE); COCAINE METABOLITE URINE NEGATIVE (NEGATIVE)
[2024-07-18 18:35] LABS: BENZODIAZEPINES URINE NEGATIVE (NEGATIVE); METHADONE URINE NEGATIVE (NEGATIVE); OPIATES URINE NEGATIVE (NEGATIVE); PHENCYCLIDINE URINE NEGATIVE (NEGATIVE)
[2024-07-18 18:36] LABS: CANNABINOIDS URINE POSITIVE (NEGATIVE)
[2024-07-18] MEDS ORDERED: MED REC CURRENTLY UNOBTAINABLE XX SCH (21:05)
[2024-07-19 13:47] VITALS: BP 110/51; TEMP 97.4; O2SAT 100
== END 2024-07-19 13:49 | disposition home or self-care (01) ==
LOC: M ED 15:02
DX: F32.A Depression, unspecified (principal); F31.9 Bipolar disorder, unspecified; F60.3 Borderline personality disorder; F12.10 Cannabis abuse, uncomplicated; Z86.19 Personal history of other infectious and parasitic diseases; F17.200 Nicotine dependence, unspecified, uncomplicated; E73.9 Lactose intolerance, unspecified
CPT/HCPCS: 80048; 80076; 80143; 80307; 82077; 84443; 84703; 85027; 96372; 99285; J1630; J2060

== ENCOUNTER 2024-08-06 21:08 | Emergency (ER) | payer OTHER ==
[~2024-08-06] VITALS: Ht 157.5 cm; Wt 45.5 kg
[2024-08-06 21:19] VITALS: BP_DIAS 77
[2024-08-06] MEDS ORDERED: HOME MED LIST COMPLETE! XX SCH (22:45)
[2024-08-06 22:49] LABS: BASO % 0.5 % (0.0-1.0); EOS # 0.1 10^3/uL (0.0-0.5); EOS % 1.5 % (0.0-3.0); HEMATOCRIT 38.6 % (36.0-47.0); HEMOGLOBIN 12.6 g/dl (12.0-15.5); LYMPH # 3.3 10^3/uL (1.5-5.0); LYMPH % 40.4 % (24.0-44.0); MEAN CORPUSCULAR HEMOGLOBIN 28.6 pg (27.0-33.0); MEAN CORPUSCULAR HGB CONC 32.6 g/dl (32.0-36.5); MEAN CORPUSCULAR VOLUME 87.7 fl (80.0-96.0); MONO # 0.6 10^3/uL (0.0-0.8); MONO % 6.8 % (2.0-8.0); NEUTROPHILS # 4.2 10^3/uL (1.5-8.5); NEUTROPHILS % 50.6 % (36.0-66.0); PLATELET COUNT, AUTOMATED 264 10^3/uL (150-450); WHITE BLOOD COUNT 8.2 10^3/uL (4.0-10.0)
[2024-08-06 23:02] LABS: ETHYL ALCOHOL (ETHANOL) < 0.003 % (0.000-0.010)
[2024-08-06 23:04] LABS: ALBUMIN 3.8 G/DL (3.2-5.2); ALKALINE PHOSPHATASE 84 U/L (46-116); ALT/SGPT 16 U/L (7.0-40); AST/SGOT 9 U/L (<34); BILIRUBIN,DIRECT < 0.1 MG/DL (<0.4); BILIRUBIN,TOTAL 0.4 MG/DL (0.3-1.2); BLOOD UREA NITROGEN 11 MG/DL (9-23); CALCIUM LEVEL 9.9 MG/DL (8.5-10.1); CARBON DIOXIDE LEVEL 28 MMOL/L (20-31); CHLORIDE LEVEL 108 MMOL/L (98-107); GLOMERULAR FILTRATION RATE > 60.0 (>60); GLUCOSE, FASTING 75 MG/DL (60-100); POTASSIUM SERUM 4.2 MMOL/L (3.5-5.1); SALICYLATE LEVEL < 3.0 MG/DL (<30); SODIUM LEVEL 138 MMOL/L (136-145)
[2024-08-06 23:06] LABS: THYROID STIMULATING HORMONE 1.391 uIU/ML (0.55-4.78)
[2024-08-06 23:09] LABS: HCG, SERUM QUALITATIVE NEGATIVE (NEGATIVE)
[2024-08-06 23:12] LABS: AMPHETAMINES LEVEL URINE NEGATIVE (NEGATIVE); BARBITURATES URINE NEGATIVE (NEGATIVE); BENZODIAZEPINES URINE NEGATIVE (NEGATIVE); COCAINE METABOLITE URINE NEGATIVE (NEGATIVE); METHADONE URINE NEGATIVE (NEGATIVE); OPIATES URINE NEGATIVE (NEGATIVE)
[2024-08-06 23:13] LABS: PHENCYCLIDINE URINE NEGATIVE (NEGATIVE)
[2024-08-06 23:28] LABS: CANNABINOIDS URINE POSITIVE (NEGATIVE)
[2024-08-06 23:46] VITALS: BP_SYST 76; TEMP 97.8; O2SAT 99
== END 2024-08-06 23:48 | disposition home or self-care (01) ==
LOC: M ED 21:08
DX: F22 Delusional disorders (principal); F32.A Depression, unspecified; F31.9 Bipolar disorder, unspecified; E73.9 Lactose intolerance, unspecified; F17.290 Nicotine dependence, other tobacco product, uncomplicated

== ENCOUNTER → 2024-10-16 | Outpatient (REF) | payer OTHER ==
[2024-10-16 13:18] LABS: ALBUMIN 4.1 G/DL (3.2-5.2); ALKALINE PHOSPHATASE 79 U/L (35-104); ALT/SGPT 55 U/L (7.0-40); AST/SGOT 33 U/L (<34); BILIRUBIN,TOTAL 0.2 MG/DL (0.3-1.2); BLOOD UREA NITROGEN 13 MG/DL (9-23); CARBON DIOXIDE LEVEL 26 MMOL/L (20-31); CHLORIDE LEVEL 109 MMOL/L (98-107); CHOLESTEROL LEVEL 230 MG/DL (<200); CHOLESTEROL RISK RATIO 4.01 (<5); CREATININE FOR GFR 0.81 MG/DL (0.55-1.30); GLOMERULAR FILTRATION RATE > 60.0 (>60); GLUCOSE, FASTING 75 MG/DL (60-100); HDL CHOLESTEROL 57.3 MG/DL (>40); LDL CHOLESTEROL 155.3 MG/DL (<100); NON-HDL-C 172.7 MG/DL; POTASSIUM SERUM 4.3 MMOL/L (3.5-5.1); SODIUM LEVEL 143 MMOL/L (136-145); TOTAL PROTEIN 7.7 G/DL (5.7-8.2); TRIGLYCERIDES LEVEL 87 MG/DL (<150)
[2024-10-16 13:20] LABS: THYROID STIMULATING HORMONE 0.574 uIU/ML (0.55-4.78); TOTAL 25(OH) VITAMIN D 16.4 NG/ML (20.0-100.0)
[2024-10-16 15:06] LABS: Trichomonas vaginalis (AMP) NOT DETECTED (NEGATIVE)
[2024-10-16 15:30] LABS: GC DNA AMPLIFICATION NEGATIVE (NEGATIVE)
== END ==
LOC: M LAB REF 12:27
PROVIDERS: ATTEND Physician Assistant
DX: R68.81 Early satiety (principal); E55.9 Vitamin D deficiency, unspecified; Z11.9 Encounter for screening for infectious and parasitic diseases, unspecified; Z13.220 Encounter for screening for lipoid disorders

== ENCOUNTER → 2024-10-18 | Outpatient (CLI) | payer OTHER | LOC: M RAD 10:31 | PROVIDERS: ATTEND Physician Assistant | DX: K59.00 Constipation, unspecified (principal) ==